=== PATIENT | male | born 1975 ===

== ENCOUNTER 2017-03-02 07:48 | Day surgery (SDC) | payer MEDICAID ==
[2017-02-25 11:51] VITALS: BMI 26.9
[2017-03-02] MEDS ORDERED: Bacitracin 500 Units/gm Oint Foilpak UD ONE (07:49)
[2017-03-02] MEDS ORDERED: Ciprofloxacin 400mg/200ml D5W 0 MG/0 ML BAG IVPB ONE (07:49)
[2017-03-02] MEDS ORDERED: Bupivacaine HCl 0.5% PF (10 ml) Inj ONE (07:49)
[2017-03-02] MEDS ORDERED: Lidocaine 1% Inj (20ml) ONE (07:49)
[2017-03-02] MEDS ORDERED: Lidocaine Hydrochloride 5 ML INJ ONE (08:52)
[2017-03-02] MEDS ORDERED: Propofol 10 mg/ml Inj (20 ML) ONE (08:52)
[2017-03-02] MEDS ORDERED: Midazolam 2 MG/2 ML VIAL ONE (08:52)
[2017-03-02] MEDS ORDERED: ceFAZolin IV 2 gm in Dextrose 0 GM/0 ML BAG IVPB ONE (09:02)
[2017-03-02] MEDS ORDERED: Lactated Ringer's 1,000 ML IV ONE (09:10)
[2017-03-02] MEDS ORDERED: ceFAZolin IV 1 gm in Dextrose 1 GM/50 ML BAG IVPB ONE (09:15)
--- NOTE | 2017-03-02 10:11 | PCM.SURG1 ---
Surgeon's Initial Post Op Note - Surgeon's Notes Surgeon: Camron Corn Cutter Operator: Ema Type of Anesthesia: General LMA Anesthesia Administered By: staff Pre-Operative Diagnosis: Phimosis Operative Findings: same Post-Operative Diagnosis: same Operation Performed: circumcision Specimen/Specimens Removed: foreskin Estimated Blood Loss: EBL {In ML}: 0 Blood Products Given: N/A Drains Used: No Drains Post-Op Condition: Good Date of Surgery/Procedure: 03/02/17 Time of Surgery/Procedure: 10:10
[2017-03-02 11:27] VITALS: RESP 13; TEMP 97.3
[2017-03-02 12:51] VITALS: O2SAT 98
[2017-03-02 12:52] VITALS: BP 120/83; PULSE 68
--- NOTE | 2017-03-02 13:05 | OP ---
PROCEDURE DATE: 03/02/2017 PREOPERATIVE DIAGNOSIS: Phimosis. POSTOPERATIVE DIAGNOSIS: Phimosis. PROCEDURE: As follows: The patient was asked to sign a detailed informed consent. He was made awar e of all possible risks and complications of circumcision and alternate methods of treating phimosis. He agreed to accept these risks and proceed with circumcision. He was brought into the room and a timeout was taken according to the rules and regulations of [facility]. Prophylactic antibiotic s were given and the patient was then draped and prepped in the usual manner. A marking pen was used to sarah the exterior of the foreskin and the interior of the foreskin at the site of the incisions. The incisions were then connected, thereby amputating the foreskin in a sleeve fashion. The cut edg es were approximated with 3-0 chromic suture in a discontinuous fashion. An excellent cosmetic resul t occurred. U-stitch was used for the frenulum. A dry sterile dressing was placed on the penis. Th e patient was sent to the recovery room in good condition. He was given a prescription for pain and a followup appointment in our office in approximately 2 week s. He was instructed to remove the bandage after 48 hours and wear clean white underwear changing it frequently. Notify us if there are any complications and make a followup appointment in our office in approximately 1 week. Andrey Lyon MD cc: [id number] TT: 03/02/2017 13:04:24 sn
== END 2017-03-02 12:30 | disposition home or self-care (01) ==
LOC: C.SDS 07:48
PROVIDERS: ATTEND Urology
DX: N47.1 Phimosis (principal); N47.6 Balanoposthitis
CPT/HCPCS: 54161; 88304; J0690; J2250; J2704; J3010; J7120